=== PATIENT | female | born 1960 | race Two or more races ===

== ENCOUNTER 2018-06-24 12:54 | Day surgery (SDC) | payer BC, OTHER ==
[~2018-06-24 12:54] MED LIST: BUPIVACAINE HCL/PF 0.5% (5MG/ML) 10 ML VIAL IJ ONE
[2018-06-24 13:24] VITALS: BMI 22.3
[2018-06-24] MEDS ORDERED: METOCLOPRAMIDE HCL INJECTION 10 MG/2 ML VIAL IVPB ONE (13:24)
[2018-06-24] MEDS ORDERED: KETOROLAC TROMETHAMINE 30 MG/1 ML VIAL IVPUSH ONE (13:24)
[2018-06-24] MEDS ORDERED: KETOROLAC TROMETHAMINE 30 MG/1 ML VIAL ONE (13:28)
[2018-06-24] MEDS ORDERED: METOCLOPRAMIDE HCL INJECTION 10 MG/2 ML VIAL ONE (13:28)
[2018-06-24] MEDS ORDERED: FAMOTIDINE 20 MG/50 ML IVPB 20 MG/50 ML MG IVPB ONE ×2 (13:30→13:39)
[2018-06-24] MEDS ORDERED: SODIUM CHLORIDE 1,000 ML IV STA (13:30)
--- NOTE | 2018-06-24 13:30 | PDOC ---
History of Present Illness - General Chief Complaint: Nausea/Vomiting Stated Complaint: NAUSEA/VOMITING Time Seen by Provider: 06/24/18 13:17 History Source: Patient, Family - History of Present Illness Timing/Duration: reports: other (yesterday) Quality: reports: other Abdominal Pain Onset Location: reports: epigastric Pain Radiation: reports: no radiation Past History - Past Medical History Allergies/Adverse Reactions: Allergies Allergy/AdvReac Type Severity Reaction Status Date / Time Penicillins Allergy Rash Verified 06/24/18 13:01 Home Medications: Ambulatory Orders Famotidine 20 mg PO DAILY 06/24/18 Glimepiride 0 mg PO DAILY 06/24/18 Lamotrigine [Lamictal Xr] 200 mg PO DAILY 06/24/18 Lisinopril 10 mg PO DAILY 06/24/18 Metformin HCl [Glucophage] 500 mg PO BID 06/24/18 Polyethylene Glycol 3350 [Miralax 119 gm Btl -] 0 tab PO DAILY 06/24/18 Quetiapine Fumarate [Seroquel] 600 mg PO DAILY 06/24/18 Rosuvastatin [Crestor -] 10 mg PO DAILY 06/24/18 Sertraline HCl 200 mg PO DAILY 06/24/18 Doxycycline Hyclate 100 mg PO BID #14 tablet 06/25/18 Asthma: Yes Cancer: No Cardiac Disorders: No CVA: No COPD: No DVT: No Dementia: Yes Diabetes: Yes Dialysis: No GI Disorders: Yes Disorders: No HTN: No Hypercholesterolemia: Yes Kidney Stones: No Liver Disease: Yes Psychiatric Problems: (bipolar disorder, depression) Seizures: No Thyroid Disease: No Lung CA: No Other medical history: Gastroparesis, Hep B - Immunization History Immunization Up to Date: Yes - Suicide/Smoking/Psychosocial Hx Smoking History: Former smoker Have you smoked in the past 12 months: No If you are a former smoker, when did you quit?: 3 years ago Information on smoking cessation initiated: No Hx Alcohol Use: Yes (socially) Drug/Substance Use Hx: No Review of Systems - Review of Systems Constitutional: No: Chills, Fever Respiratory: No: Shortness of Breath Cardiac (ROS): No: Chest Pain ABD/GI: Yes: Nausea, Vomiting. No: Diarrhea : No: Dysuria, Flank Pain, Hematuria *Physical Exam - Vital Signs Last Vital Signs Temp Pulse Resp BP Pulse Ox 97.5 F L 86 16 106/55 96 06/24/18 13:01 06/24/18 13:01 06/24/18 13:01 06/24/18 13:01 06/24/18 13:01 - Physical Exam General Appearance: Yes: Appropriately Dressed, Mild Distress HEENT: positive: Normal Voice Neck: positive: Supple Respiratory/Chest: positive: Lungs Clear, Normal Breath Sounds. negative: Respiratory Distress Cardiovascular: positive: Regular Rate, S1, S2 Gastrointestinal/Abdominal: positive: Normal Bowel Sounds, Tender (minimal ttp to epigastrium, NT to RUQ or over mcburneys), Soft. negative: Distended, Guarding, Rebound Musculoskeletal: negative: CVA Tenderness Extremity: positive: Normal Inspection Integumentary: positive: Dry, Warm Neurologic: positive: Fully Oriented, Alert, Normal Mood/Affect ED Treatment Course - LABORATORY CBC & Chemistry Diagram: 06/25/18 06:30 06/25/18 06:30 Medical Decision Making - Medical Decision Making 06/24/18 13:24 57-year-old female, history of bipolar, asthma, NIDDM, gastroparesis, s/p tx for hpylori 10/15, has outside GI, brought in by daughter for nausea, vomiting with upper abdominal pain since yesterday. As per patient, began having some vague upper abdominal discomfort yesterday that might have worsened today and since this am, has had approximately 3 episodes of non-bloody, non-bilious nausea, vomiting. Unsure if pain impacted w/ food at all. pt not certain if her current symptoms similar to her gastroparesis. No change in bowel movements , fever or chills. No chest pain or shortness of breath. As per daughter, patient was treated for H. pylori last year, but feels that patient has not recovered fully since procedure in that her appetite has decreased since and has maybe had some subsequent weight loss. No h/o gallstones or kidney stones. No dysuria See exam Possible gastroparesis flare vs gastritis vs recurrent hpylori, less likely paul, renal colic and no lower abd pain to suggest appy, unlikely cardiac -pain control -antiemetic -IVF -ekg given age/RF -labs -reassess 06/24/18 13:35 06/24/18 13:41 Pt signed out to Dr John crockett w/u and dispo *DC/Admit/Observation/Transfer Diagnosis at time of Disposition: Appendicitis - Discharge Dispostion Disposition: HOME Condition at time of disposition: Improved - Prescriptions - Referrals - Patient Instructions - Post Discharge Activity
--- NOTE | 2018-06-24 14:13 | EKG ---
Test Reason : Blood Pressure : / mmHG Vent. Rate : 082 BPM Atrial Rate : 082 BPM P-R Int : 154 ms QRS Dur : 082 ms QT Int : 392 ms P-R-T Axes : 054 043 055 degrees QTc Int : 457 ms NORMAL SINUS RHYTHM NORMAL ECG NO PREVIOUS ECGS AVAILABLE Confirmed by VANDANA JAMES, SOLEDAD ([id number]) on 06/24/2018 2:13:17 PM Referred By: Confirmed By:SOLEDAD ROSS MD
[2018-06-24 14:18] LABS: BASO % 0.2 % (0-2.0); EOS % 3.6 % (0-4.5); HEMATOCRIT 38.6 % (32.4-45.2); HEMOGLOBIN 12.8 GM/dL (10.7-15.3); LYMPH % 12.4 % (8-40); MCH 31.4 pg (25.7-33.7); MCHC 33.2 g/dl (32.0-36.0); MEAN CELL VOLUME 94.4 fl (80-96); MEAN PLT VOLUME 8.9 fl (7.5-11.1); MONO % 5.6 % (3.8-10.2); NEUT % 78.2 % (42.8-82.8); PLATELET COUNT 349 K/MM3 (134-434); RBC 4.09 M/mm3 (3.60-5.2); WHITE BLOOD COUNT 16.5 K/mm3 (4.0-10.0)
[2018-06-24 14:41] LABS: ALBUMIN 4.1 g/dl (3.4-5.0); ANION GAP 8 (8-16); BLOOD UREA NITROGEN 17 mg/dL (7-18); CALCIUM 9.5 mg/dL (8.5-10.1); CHLORIDE 104 mmol/L (98-107); CO2 29 mmol/L (21-32); CREATININE 1.1 mg/dL (0.55-1.02); GLUCOSE,RANDOM 124 mg/dL (74-106); SGOT/AST 18 U/L (15-37); SGPT/ALT 20 U/L (12-78); SODIUM 141 mmol/L (136-145)
[2018-06-24 14:45] LABS: ALK PHOS 88 U/L (45-117); BILIRUBIN,TOTAL 0.3 mg/dL (0.2-1.0); TOT PROT 7.6 g/dl (6.4-8.2)
[2018-06-24 14:54] LABS: URINE APPEARANCE CLEAR; URINE BILIRUBIN NEGATIVE (<2.0 mg/dL); URINE COLOR LTYELLOW; URINE GLUCOSE (UA) NEGATIVE (NEGATIVE); URINE KETONE NEGATIVE (NEGATIVE); URINE LEUK ESTERASE TRACE (NEGATIVE); URINE NITRITE NEGATIVE (NEGATIVE); URINE PROTEIN NEGATIVE (NEGATIVE); URINE UROBILINOGEN NEGATIVE mg/dL (0.2-1.0)
[2018-06-24 15:01] LABS: EPI CELLS RARE /HPF (FEW); URINE MUCUS RARE
[2018-06-24] MEDS ORDERED: ACETAMINOPHEN 1000 MG/100 ML VIAL (NON FORMULARY) IVPB ONE (15:31)
--- NOTE | 2018-06-24 16:36 | PDOC ---
*Physical Exam - Vital Signs Last Vital Signs Temp Pulse Resp BP Pulse Ox 97.5 F L 86 16 106/55 96 06/24/18 13:01 06/24/18 13:01 06/24/18 13:01 06/24/18 13:01 06/24/18 13:01 - Physical Exam Gastrointestinal/Abdominal: positive: Normal Bowel Sounds, Tender (LLQ). negative: Guarding, Rebound ED Treatment Course - LABORATORY CBC & Chemistry Diagram: 06/25/18 06:30 06/25/18 06:30 - ADDITIONAL ORDERS Additional order review: Laboratory Results 06/24/18 06/24/18 06/24/18 14:44 13:55 13:55 Sodium 141 Potassium 5.0 Chloride 104 Carbon Dioxide 29 Anion Gap 8 BUN 17 Creatinine 1.1 H Creat Clearance w eGFR 50.84 Random Glucose 124 H Calcium 9.5 Total Bilirubin 0.3 AST 18 ALT 20 Alkaline Phosphatase 88 Creatine Kinase 91 Troponin I < 0.02 Total Protein 7.6 Albumin 4.1 Lipase 180 Urine Color Ltyellow Urine Appearance Clear Urine pH 7.0 Ur Specific [place] 1.010 Urine Protein Negative Urine Glucose (UA) Negative Urine Ketones Negative Urine Blood Negative Urine Nitrite Negative Urine Bilirubin Negative Urine Urobilinogen Negative Ur Leukocyte Esterase Trace Urine WBC (Auto) None Urine RBC (Auto) None Ur Epithelial Cells Rare Urine Mucus Rare 06/24/18 13:55 RBC 4.09 MCV 94.4 MCHC 33.2 RDW 12.0 MPV 8.9 Neutrophils % 78.2 Lymphocytes % 12.4 Monocytes % 5.6 Eosinophils % 3.6 Basophils % 0.2 - RADIOLOGY Radiology Studies Ordered: Category Date Time Status ABDOMEN & PELVIS CT WITH CONTR [CT] Stat CT Scan 06/24/18 15:10 Taken - Medications Given in the ED: ED Medications Discontinued Medications Generic Name Dose Route Start Last Admin Trade Name Freq PRN Reason Stop Dose Admin Famotidine/Sodium Chloride 20 mg in 50 mls @ 100 mls/hr 06/24/18 13:30 14:17 Pepcid 20 Mg Premixed Ivpb - IVPB 06/24/18 13:59 100 mls/hr ONCE ONE Administration Sodium Chloride 1,000 mls @ 1,000 mls/hr 06/24/18 13:30 06/24/18 14:00 Normal Saline - IV 06/24/18 14:29 1,000 mls/hr ASDIR STA Administration Metoclopramide HCl 10 mg 06/24/18 13:24 06/24/18 15:25 Reglan Injection - IVPB 06/24/18 13:25 Not Given ONCE ONE Medical Decision Making - Medical Decision Making 06/24/18 16:35 57 years old diabetes lower abdominal discomfort labs notable for elevated WBC CAT scan pending to Follow up results and reasses Left lower quadrant pain, CT with evidence of possible early appendicitis with appendiceal tip pointing to the left. Given white count and diabetic ertapenem given, given penicillin ALLERGY, Surgery to be consulted by resident. Dr. Reardon to follow. *DC/Admit/Observation/Transfer Diagnosis at time of Disposition: Appendicitis Qualifiers: Appendicitis type: acute appendicitis Acute appendicitis type: other Qualified Code(s): K35.89 - Other acute appendicitis - Discharge Dispostion Disposition: HOME Condition at time of disposition: Improved - Prescriptions - Referrals - Patient Instructions - Post Discharge Activity
[2018-06-24] MEDS ORDERED: ACETAMINOPHEN INJECTION 100 ML IVPB ONE (16:44)
[2018-06-24] MEDS ORDERED: ERTAPENEM SODIUM 1 GM/50 ML PRE-DOCKED IVPB ONE (17:14)
[2018-06-24] MEDS ORDERED: ERTAPENEM SODIUM 1 GM VIAL ONE (17:29)
[2018-06-24] MEDS ORDERED: BUPIVACAINE HCL/PF 0.5% (5MG/ML) 10 ML VIAL ONE (18:05)
--- NOTE | 2018-06-24 18:05 | PDOC ---
History of Present Illness - General Chief Complaint: Nausea/Vomiting Stated Complaint: NAUSEA/VOMITING Time Seen by Provider: 06/24/18 13:17 - History of Present Illness Initial Comments: 06/25/18 18:48 Per ALTON Silvestre note. 57-year-old female, history of bipolar, asthma, NIDDM, gastroparesis, s/p tx for hpylori 10/15, has outside GI, brought in by daughter for nausea, vomiting with upper abdominal pain since yesterday. As per patient, began having some vague upper abdominal discomfort yesterday that might have worsened today and since this am, has had approximately 3 episodes of non-bloody, non-bilious nausea, vomiting. Unsure if pain impacted w/ food at all. pt not certain if her current symptoms similar to her gastroparesis. No change in bowel movements , fever or chills. No chest pain or shortness of breath. As per daughter, patient was treated for H. pylori last year, but feels that patient has not recovered fully since procedure in that her appetite has decreased since and has maybe had some subsequent weight loss. No h/o gallstones or kidney stones. No dysuria See exam Possible gastroparesis flare vs gastritis vs recurrent hpylori, less likely paul, renal colic and no lower abd pain to suggest appy, unlikely cardiac -pain control -antiemetic -IVF -ekg given age/RF -labs -reassess Past History - Past Medical History Allergies/Adverse Reactions: Allergies Allergy/AdvReac Type Severity Reaction Status Date / Time Penicillins Allergy Rash Verified 06/24/18 13:01 Home Medications: Ambulatory Orders Famotidine 20 mg PO DAILY 06/24/18 Glimepiride 0 mg PO DAILY 06/24/18 Lamotrigine [Lamictal Xr] 200 mg PO DAILY 06/24/18 Lisinopril 10 mg PO DAILY 06/24/18 Metformin HCl [Glucophage] 500 mg PO BID 06/24/18 Polyethylene Glycol 3350 [Miralax 119 gm Btl -] 0 tab PO DAILY 06/24/18 Quetiapine Fumarate [Seroquel] 600 mg PO DAILY 06/24/18 Rosuvastatin [Crestor -] 10 mg PO DAILY 06/24/18 Sertraline HCl 200 mg PO DAILY 06/24/18 Doxycycline Hyclate 100 mg PO BID #14 tablet 06/25/18 Asthma: Yes Cancer: No Cardiac Disorders: No CVA: No COPD: No DVT: No Dementia: Yes Diabetes: Yes Dialysis: No GI Disorders: Yes Disorders: No HTN: No Hypercholesterolemia: Yes Kidney Stones: No Liver Disease: Yes Psychiatric Problems: (bipolar disorder, depression) Seizures: No Thyroid Disease: No Lung CA: No Other medical history: Gastroparesis, Hep B - Immunization History Immunization Up to Date: Yes - Suicide/Smoking/Psychosocial Hx Smoking History: Former smoker Have you smoked in the past 12 months: No If you are a former smoker, when did you quit?: 3 years ago Information on smoking cessation initiated: No Hx Alcohol Use: Yes (socially) Drug/Substance Use Hx: No Review of Systems - Review of Systems Able to Perform ROS?: Yes Is the patient limited Kiswahili proficient: No Constitutional: No: Chills, Diaphoresis, Fever HEENTM: No: Blurred Vision, Tinnitus Respiratory: No: Cough, Orthopnea, Shortness of Breath Cardiac (ROS): No: Chest Pain, Palpitations, Chest Tightness ABD/GI: Yes: Vomiting. No: Constipated : No: Burning, Dysuria Musculoskeletal: No: Back Pain, Muscle Pain, Muscle Weakness Neurological: No: Headache, Numbness, Tingling *Physical Exam - Vital Signs Last Vital Signs Temp Pulse Resp BP Pulse Ox 97.1 F L 73 16 121/59 97 06/24/18 16:40 06/24/18 16:40 06/24/18 16:40 06/24/18 16:40 06/24/18 16:40 - Physical Exam Comments: 06/25/18 18:49 GENERAL: Awake, alert, and fully oriented, in no acute distress HEAD: No signs of trauma, normocephalic, atraumatic EYES: EOMI, sclera anicteric, conjunctiva clear ENT:oropharynx clear without exudates. Moist mucosa NECK: Normal ROM LUNGS: No distress, speaks full sentences, clear to auscultation bilaterally HEART: Regular rate and rhythm, normal S1 and S2, no murmurs, rubs or gallops, peripheral pulses normal and equal bilaterally. ABDOMEN: Soft, + LLQ tenderness to palpation, normoactive bowel sounds. No guarding, no rebound. No masses EXTREMITIES : Normal inspection, Normal range of motion, no edema. No clubbing or cyanosis. NEUROLOGICAL: Normal speech, normal gait, no focal sensorimotor deficits SKIN: Warm, Dry, normal turgor, no rashes or lesions noted ED Treatment Course - LABORATORY CBC & Chemistry Diagram: 06/25/18 06:30 06/25/18 06:30 - ADDITIONAL ORDERS Additional order review: Laboratory Results 06/24/18 06/24/18 06/24/18 14:44 13:55 13:55 Sodium 141 Potassium 5.0 Chloride 104 Carbon Dioxide 29 Anion Gap 8 BUN 17 Creatinine 1.1 H Creat Clearance w eGFR 50.84 Random Glucose 124 H Calcium 9.5 Total Bilirubin 0.3 AST 18 ALT 20 Alkaline Phosphatase 88 Creatine Kinase 91 Troponin I < 0.02 Total Protein 7.6 Albumin 4.1 Lipase 180 Urine Color Ltyellow Urine Appearance Clear Urine pH 7.0 Ur Specific [place] 1.010 Urine Protein Negative Urine Glucose (UA) Negative Urine Ketones Negative Urine Blood Negative Urine Nitrite Negative Urine Bilirubin Negative Urine Urobilinogen Negative Ur Leukocyte Esterase Trace Urine WBC (Auto) None Urine RBC (Auto) None Ur Epithelial Cells Rare Urine Mucus Rare 06/24/18 13:55 RBC 4.09 MCV 94.4 MCHC 33.2 RDW 12.0 MPV 8.9 Neutrophils % 78.2 Lymphocytes % 12.4 Monocytes % 5.6 Eosinophils % 3.6 Basophils % 0.2 - Medications Given in the ED: ED Medications Discontinued Medications Generic Name Dose Route Start Last Admin Trade Name Freq PRN Reason Stop Dose Admin Acetaminophen 1,000 mg 06/24/18 15:31 06/24/18 16:45 Ofirmev Injection - IVPB 06/24/18 15:32 1,000 mg ONCE ONE Administration Famotidine/Sodium Chloride 20 mg in 50 mls @ 100 mls/hr 06/24/18 13:30 14:17 Pepcid 20 Mg Premixed Ivpb - IVPB 06/24/18 13:59 100 mls/hr ONCE ONE Administration Sodium Chloride 1,000 mls @ 1,000 mls/hr 06/24/18 13:30 06/24/18 14:00 Normal Saline - IV 06/24/18 14:29 1,000 mls/hr ASDIR STA Administration Ketorolac Tromethamine 30 mg 06/24/18 13:24 06/24/18 17:10 Toradol Injection - IVPUSH 06/24/18 13:25 Not Given ONCE ONE Metoclopramide HCl 10 mg 06/24/18 13:24 06/24/18 15:25 Reglan Injection - IVPB 06/24/18 13:25 Not Given ONCE ONE Medical Decision Making - Medical Decision Making 06/25/18 18:51 57-year-old female, history of bipolar, asthma, NIDDM, gastroparesis, s/p tx for hpylori 10/15, has outside GI, brought in by daughter for nausea, vomiting with upper abdominal pain since yesterday. Possible gastroparesis flare vs gastritis vs recurrent hpylori, less likely paul, renal colic and no lower abd pain to suggest appy, unlikely cardiac. Patient had an elevated WBC and abdominal CT showed some signs of early appendicitis and a L pointing appendix tip that shows some consistency with the patient's physical exam. Surgery was consulted for possible appendicitis. The patient agreed to appendectomy procedure and will be admitted to med/surg. 06/25/18 18:54 06/25/18 18:55 *DC/Admit/Observation/Transfer Diagnosis at time of Disposition: Appendicitis Qualifiers: Appendicitis type: acute appendicitis Acute appendicitis type: other Qualified Code(s): K35.89 - Other acute appendicitis - Discharge Dispostion Disposition: HOME Condition at time of disposition: Improved Decision to Admit order: Yes - Prescriptions - Referrals - Patient Instructions - Post Discharge Activity
--- NOTE | 2018-06-24 18:07 | CONSULT ---
Consult Consult Specialty:: general surgery Reason for Consultation:: appendicitis - History of Present Illness Chief Complaint: abdominal pain History of Present Illness: 57 yo female PMH history of bipolar, asthma, NIDDM, gastroparesis, brought in by daughter for nausea, vomiting with upper abdominal pain since yesterday. As per patient, began having some vague upper abdominal discomfort yesterday that might have worsened today and since this am, has had approximately 3 episodes of non-bloody, non-bilious nausea, vomiting. Unsure if pain impacted w/ food at all. pt not certain if her current symptoms similar to her gastroparesis. No change in bowel movements, fever or chills. CTscan showed a prominent appendix with a left LLQ upper pelvic facing tip. Last meal was yesterday. We were called to assess. - History Source History Provided By: Patient, Medical Record Limitations to Obtaining History: No Limitations - Past Medical History Pulmonary: Yes: Asthma Psych: Yes: Bipolar Endocrine: Yes: Diabetes Mellitus - Alcohol/Substance Use Hx Alcohol Use: Yes (socially) - Smoking History Smoking history: Former smoker Have you smoked in the past 12 months: No If you are a former smoker, when did you quit?: 3 years ago Home Medications - Allergies Allergies/Adverse Reactions: Allergies Allergy/AdvReac Type Severity Reaction Status Date / Time Penicillins Allergy Rash Verified 06/24/18 13:01 - Home Medications Home Medications: Ambulatory Orders Famotidine 20 mg PO DAILY 06/24/18 Glimepiride 0 mg PO DAILY 06/24/18 Lamotrigine [Lamictal Xr] 200 mg PO DAILY 06/24/18 Lisinopril 10 mg PO DAILY 06/24/18 Metformin HCl [Glucophage] 500 mg PO BID 06/24/18 Polyethylene Glycol 3350 [Miralax 119 gm Btl -] 0 tab PO DAILY 06/24/18 Quetiapine Fumarate [Seroquel] 600 mg PO DAILY 06/24/18 Rosuvastatin [Crestor -] 10 mg PO DAILY 06/24/18 Sertraline HCl 200 mg PO DAILY 06/24/18 Review of Systems - Review of Systems Constitutional: denies: Chills, Fever Eyes: denies: Blind Spots, Recent Change in Vision HENT: denies: Difficult Swallowing, Throat Pain Neck: denies: Decreased ROM, Tenderness Cardiovascular: denies: Chest Pain, Palpitations Respiratory: denies: Cough, SOB Gastrointestinal: reports: Abdominal Pain, Constipation, Indigestion, Vomiting Genitourinary: denies: Discharge, Dysuria Breasts: reports: No Symptoms Reported. denies: Pain Musculoskeletal: denies: Muscle Cramps, Muscle Weakness Integumentary: denies: Lesions, Lump, Rash Neurological: denies: Seizure, Syncope Endocrine: denies: Unexplained Weight Gain, Unexplained Weight Loss Hematology/Lymphatic: denies: Easily Bruised, Excessive Bleeding Psychiatric: reports: Depression. denies: Anxiety Physical Exam Vital Signs: Vital Signs Temperature 97.1 F L 06/24/18 16:40 Pulse Rate 73 06/24/18 16:40 Respiratory Rate 16 06/24/18 16:40 Blood Pressure 121/59 06/24/18 16:40 O2 Sat by Pulse Oximetry (%) 97 06/24/18 16:40 Vital Signs Period Temp Pulse Resp BP Sys/[place] Pulse Ox Last 24 Hr 97.1 F-97.5 F 73-86 16-16 106-121/55-59 96-97 Constitutional: Yes: Well Nourished, Calm, Mild Distress Eyes: Yes: Conjunctiva Clear, EOM Intact HENT: Yes: Atraumatic, Normocephalic Neck: Yes: Supple, Trachea Midline Cardiovascular: Yes: Regular Rate and Rhythm, S1, S2 Respiratory: Yes: Regular, CTA Bilaterally Gastrointestinal: Yes: Normal Bowel Sounds, Soft, Tenderness (LLQ). No: Palpable Mass, Tenderness, Epigastrium, Tenderness, Rebound ...Rectal Exam: Yes: Sphincter Tone Normal. No: Mass Renal/: No: CVA Tenderness - Left, CVA Tenderness - Right Musculoskeletal: No: Muscle Pain, Muscle Weakness Extremities: No: Cool, Cyanosis Edema: No Peripheral Pulses WNL: Yes Neurological: Yes: Alert, Oriented Psychiatric: Yes: Alert, Oriented Labs: CBC, BMP 06/24/18 13:55 06/24/18 13:55 Imaging - Results Cat Scan: Report Reviewed, Image Reviewed (prominent appendix 0.8cm) Problem List - Problems (1) Acute appendicitis with localized peritonitis Assessment/Plan: 57 yo female with early acute appendicitis with left sided localized peritonitis NPO and IVF hydration IV antibiotics Discussed with patient risks, benefits and alternatives of laparoscopic possible open appendectomy, including but not limited to bleeding, infection, injury to adjacent structures, leak or injury, intraabdominal abscess, need for further procedures, ; alternatives include antibiotics, delayed or no surgery - risks of this include failure of nonoperative therapy, perforation, sepsis, recurrence, . Patient desires to proceed with operation - will take to OR for above. Informed consent signed for same. Thank you for the opportunity to participate in the care of this patient. Code(s): K35.3 - ACUTE APPENDICITIS WITH LOCALIZED PERITONITIS (2) Abdominal pain in female Code(s): R10.9 - UNSPECIFIED ABDOMINAL PAIN (3) Diabetes Code(s): E11.9 - TYPE 2 DIABETES MELLITUS WITHOUT COMPLICATIONS Qualifiers: Diabetes mellitus type: type 2 (4) Bipolar disorder Code(s): F31.9 - BIPOLAR DISORDER, UNSPECIFIED (5) History of Helicobacter pylori infection Code(s): Z86.19 - PERSONAL HISTORY OF OTHER INFECTIOUS AND PARASITIC DISEASES
[2018-06-24 18:09] LABS: INR 1.1 (0.82-1.09); PROTHROMBIN TIME (PATIENT) 12.4 SEC (9.7-13.0)
[2018-06-24 18:12] LABS: ACTIVATED PTT 28.7 SECONDS (25.2-36.5)
--- NOTE | 2018-06-24 18:25 | PDOC ---
*Physical Exam - Vital Signs Last Vital Signs Temp Pulse Resp BP Pulse Ox 97.1 F L 73 16 121/59 97 06/24/18 16:40 06/24/18 16:40 06/24/18 16:40 06/24/18 16:40 06/24/18 16:40 ED Treatment Course - LABORATORY CBC & Chemistry Diagram: 06/24/18 13:55 06/24/18 13:55 - ADDITIONAL ORDERS Additional order review: Laboratory Results 06/24/18 06/24/18 06/24/18 17:32 14:44 13:55 PT with INR 12.40 INR 1.10 PTT (Actin FS) 28.7 Sodium Potassium Chloride Carbon Dioxide Anion Gap BUN Creatinine Creat Clearance w eGFR Random Glucose Calcium Total Bilirubin AST ALT Alkaline Phosphatase Creatine Kinase Troponin I Total Protein Albumin Lipase 180 Urine Color Ltyellow Urine Appearance Clear Urine pH 7.0 Ur Specific [place] 1.010 Urine Protein Negative Urine Glucose (UA) Negative Urine Ketones Negative Urine Blood Negative Urine Nitrite Negative Urine Bilirubin Negative Urine Urobilinogen Negative Ur Leukocyte Esterase Trace Urine WBC (Auto) None Urine RBC (Auto) None Ur Epithelial Cells Rare Urine Mucus Rare 06/24/18 13:55 PT with INR INR PTT (Actin FS) Sodium 141 Potassium 5.0 Chloride 104 Carbon Dioxide 29 Anion Gap 8 BUN 17 Creatinine 1.1 H Creat Clearance w eGFR 50.84 Random Glucose 124 H Calcium 9.5 Total Bilirubin 0.3 AST 18 ALT 20 Alkaline Phosphatase 88 Creatine Kinase 91 Troponin I < 0.02 Total Protein 7.6 Albumin 4.1 Lipase Urine Color Urine Appearance Urine pH Ur Specific [place] Urine Protein Urine Glucose (UA) Urine Ketones Urine Blood Urine Nitrite Urine Bilirubin Urine Urobilinogen Ur Leukocyte Esterase Urine WBC (Auto) Urine RBC (Auto) Ur Epithelial Cells Urine Mucus 06/24/18 13:55 RBC 4.09 MCV 94.4 MCHC 33.2 RDW 12.0 MPV 8.9 Neutrophils % 78.2 Lymphocytes % 12.4 Monocytes % 5.6 Eosinophils % 3.6 Basophils % 0.2 - Medications Given in the ED: ED Medications Discontinued Medications Generic Name Dose Route Start Last Admin Trade Name Freq PRN Reason Stop Dose Admin Acetaminophen 1,000 mg 06/24/18 15:31 06/24/18 16:45 Ofirmev Injection - IVPB 06/24/18 15:32 1,000 mg ONCE ONE Administration Famotidine/Sodium Chloride 20 mg in 50 mls @ 100 mls/hr 06/24/18 13:30 14:17 Pepcid 20 Mg Premixed Ivpb - IVPB 06/24/18 13:59 100 mls/hr ONCE ONE Administration Sodium Chloride 1,000 mls @ 1,000 mls/hr 06/24/18 13:30 06/24/18 14:00 Normal Saline - IV 06/24/18 14:29 1,000 mls/hr ASDIR STA Administration Ketorolac Tromethamine 30 mg 06/24/18 13:24 06/24/18 17:10 Toradol Injection - IVPUSH 06/24/18 13:25 Not Given ONCE ONE Metoclopramide HCl 10 mg 06/24/18 13:24 06/24/18 15:25 Reglan Injection - IVPB 06/24/18 13:25 Not Given ONCE ONE Medical Decision Making - Medical Decision Making 06/24/18 18:23 pt signed out from Dr. Shukla pending surg cs, labs with +WBC ct, CT a/p with suggestions of early appy and dilated appx 0.8cm. IV abx administered, seen by surgery, Dr. Anderson, will pend operative management. admit to hospitalist for acute appy. stable for floors, pain controlled. *DC/Admit/Observation/Transfer Diagnosis at time of Disposition: Appendicitis Qualifiers: Appendicitis type: acute appendicitis Acute appendicitis type: other Qualified Code(s): K35.89 - Other acute appendicitis - Discharge Dispostion Condition at time of disposition: Guarded Decision to Admit order: Yes - Referrals Referrals: Akila Moran MD [Primary Care Provider] - - Patient Instructions - Post Discharge Activity
[2018-06-24] MEDS ORDERED: LIDOCAINE HCL/PF 2% SDV 5ML VIAL ONE (19:43)
[2018-06-24] MEDS ORDERED: PROPOFOL 20 ML ONE (19:43)
[2018-06-24] MEDS ORDERED: ROCURONIUM BROMIDE 50 MG/5 ML VIAL ONE (19:44)
[2018-06-24] MEDS ORDERED: DEXAMETHASONE SOD PHOSPHATE 4 MG/1 ML VIAL ONE (19:52)
[2018-06-24] MEDS ORDERED: ONDANSETRON 4 MG/2 ML VIAL IVPUSH PRN ×3 (20:15→20:51)
[2018-06-24] MEDS ORDERED: PHENYLEPHRINE HCL 10 MG/1 ML SINGLE DOSE VIAL ONE (20:17)
[2018-06-24] MEDS ORDERED: NEOSTIGMINE METHYLSULFATE 0.5 MG/ML - 10 ML MDV ONE (20:18)
[2018-06-24] MEDS ORDERED: GLYCOPYRROLATE 0.2 MG/1 ML VIAL ONE (20:18)
[2018-06-24] MEDS ORDERED: BUPIVACAINE HCL/PF 0.5% (5MG/ML) 10 ML VIAL IJ ONE (20:20)
--- NOTE | 2018-06-24 20:40 | OP ---
Operative Note - Note: Operative Date: 06/24/18 Pre-Operative Diagnosis: early acute appendicitis Operation: laparoscopic appendectomy Findings: long mildly inflamed appendix. no gross perforation seen. all counts correct Post-Operative Diagnosis: Same as Pre-op Surgeon: Jeffrey Anderson Anesthesiologist/CHAMPAGNE MAKER: Bharath French Anesthesia: General, Local (0.5% marcaine 10ml) Specimens Removed: appendix Estimated Blood Loss (mls): 10 Drains, Volume Out (mls): 200 (urine (grayson removed)) Fluid Volume Replaced (mls): 700 (crystalloid ) Operative Report Dictated: Yes
[2018-06-24] MEDS ORDERED: ACETAMINOPHEN 325 MG TABLET (FP) PO PRN ×2 (20:43→20:51)
[2018-06-24] MEDS ORDERED: morphine SULFATE 4 MG/ML VIAL IVPUSH PRN ×2 (20:43→20:51)
[2018-06-24] MEDS ORDERED: IBUPROFEN 600 MG TABLET (FP) PO PRN ×2 (20:43→20:51)
[2018-06-24] MEDS: LACTATED RINGERS SOLUTION 1,000 ML/1,000 ML INFUS.BAG IV SCH (21:45)
--- NOTE | 2018-06-25 00:45 | HP ---
CHIEF COMPLAINT: Abdominal Pain PCP: Dr. Moran HISTORY OF PRESENT ILLNESS: Of note, Hx and Physical were done after patient was roomed post op. 57 y/o F with a PMHx of Asthma, Dementia, HLD, Bipolar, Depression, Gastroparesis, Hep B, NIDDM, H Pylori presents after 3 episodes of NBNB Vomiting accompanied with LLQ pain. Patient normally vomits 1-2x a week. However , today she had some diffuse abdominal pain that worsened and patient looked dehydrated to her daughter. Pain described as constant in the LLQ, 05/08, did not travel. Patient is unsure what triggered the pain and vomiting. Denies any new foods, medication changes or travel. Patient has felt a decreased appetite for some time now. Most of the hx was provided by the son and daughter present. ER course was notable for: (1) CT Abdomen: appendix appears prominent measuring 0.8 cm in diameter, may be early acute appendicitis. (2) NS, Reglan, Pepcid, Toradol, Ertapenem (3) WBC 16.5 Recent Travel: Denies PAST MEDICAL HISTORY: Asthma, Dementia, NIDDM, HLD, Bipolar, Depression, Gastroparesis, Hep B, H Pylori PAST SURGICAL HISTORY: Tummy tuck (years ago) Social History: Smokin/3ppd for 25 years, quit 3 years ago Alcohol: Socially Drugs: Denies Family History: Extensive psych hx as per daughter Brother with Crohns Mother with Alzhiemers, HTN Allergies Penicillins Allergy (Verified 06/24/18 13:01) Rash HOME MEDICATIONS: Home Medications Medication Instructions Recorded Famotidine 20 mg PO DAILY 06/24/18 Glimepiride 0 mg PO DAILY 06/24/18 Lamotrigine [Lamictal Xr] 200 mg PO DAILY 06/24/18 Lisinopril 10 mg PO DAILY 06/24/18 Metformin HCl [Glucophage] 500 mg PO BID 06/24/18 Polyethylene Glycol 3350 [Miralax 0 tab PO DAILY 06/24/18 119 gm Btl -] Quetiapine Fumarate [Seroquel] 600 mg PO DAILY 06/24/18 Rosuvastatin [Crestor -] 10 mg PO DAILY 06/24/18 Sertraline HCl 200 mg PO DAILY 06/24/18 REVIEW OF SYSTEMS CONSTITUTIONAL: Present: loss of appetite Absent: fever, chills, diaphoresis, generalized weakness, malaise, weight change HEENT: Absent: rhinorrhea, nasal congestion, throat pain, throat swelling, difficulty swallowing, mouth swelling, ear pain, eye pain, visual changes CARDIOVASCULAR: Absent: chest pain, syncope, palpitations, irregular heart rate, lightheadedness , peripheral edema RESPIRATORY: Absent: cough, shortness of breath, dyspnea with exertion, orthopnea, wheezing, stridor, hemoptysis GASTROINTESTINAL: Present: abdominal pain, nausea, vomiting, constipation Absent: abdominal distension, diarrhea, melena, hematochezia GENITOURINARY: Absent: dysuria, frequency, urgency, hesitancy, hematuria, flank pain, genital pain MUSCULOSKELETAL: Absent: myalgia, arthralgia, joint swelling, back pain, neck pain SKIN: Absent: rash, itching, pallor HEMATOLOGIC/IMMUNOLOGIC: Absent: easy bleeding, easy bruising, lymphadenopathy, frequent infections ENDOCRINE: Absent: unexplained weight gain, unexplained weight loss, heat intolerance, cold intolerance NEUROLOGIC: Absent: headache, focal weakness or paresthesias, dizziness, unsteady gait, seizure, mental status changes, bladder or bowel incontinence PSYCHIATRIC: Absent: anxiety, depression, suicidal or homicidal ideation, hallucinations. PHYSICAL EXAMINATION Vital Signs - 24 hr 06/24/18 06/24/18 06/24/18 13:01 16:40 20:34 Temperature 97.5 F L 97.1 F L 97.8 F Pulse Rate 86 90 Pulse Rate [ 73 Left Radial] Respiratory 16 16 16 Rate Blood Pressure 106/55 148/61 Blood Pressure 121/59 [Left Arm] O2 Sat by Pulse 96 97 98 Oximetry (%) 06/24/18 06/24/18 06/24/18 20:45 21:00 21:15 Temperature Pulse Rate 84 76 72 Pulse Rate [ Left Radial] Respiratory 15 16 15 Rate Blood Pressure 122/57 112/57 110/56 Blood Pressure [Left Arm] O2 Sat by Pulse 99 100 100 Oximetry (%) 06/24/18 06/24/18 06/24/18 21:30 21:45 22:29 Temperature 97.8 F 98.4 F Pulse Rate 72 70 66 Pulse Rate [ Left Radial] Respiratory 14 14 18 Rate Blood Pressure 103/58 108/56 110/65 Blood Pressure [Left Arm] O2 Sat by Pulse 100 98 Oximetry (%) GENERAL: Awake, alert, and fully oriented, in no acute distress. THROAT: Oropharynx clear without exudates. Moist mucous membranes. NECK: No JVD LUNGS: Breath sounds equal, clear to auscultation bilaterally. No wheezes HEART: Regular rate and rhythm, normal S1 and S2 without murmur, rub or gallop. ABDOMEN: Soft, Diffuse Tenderness to palpation, 3 surgical wounds present healing with overlying purple glue, no drainge, erythema or swelling noted. Not distended, normoactive bowel sounds, no guarding EXTREMITIES: No peripheral edema. Wearing SCDs Laboratory Results - last 24 hr 06/24/18 06/24/18 06/24/18 13:55 13:55 13:55 WBC 16.5 H RBC 4.09 Hgb 12.8 Hct 38.6 MCV 94.4 MCH 31.4 MCHC 33.2 RDW 12.0 Plt Count 349 MPV 8.9 Absolute Neuts (auto) 12.9 Neutrophils % 78.2 Lymphocytes % 12.4 Monocytes % 5.6 Eosinophils % 3.6 Basophils % 0.2 Nucleated RBC % 0 PT with INR INR PTT (Actin FS) Sodium 141 Potassium 5.0 Chloride 104 Carbon Dioxide 29 Anion Gap 8 BUN 17 Creatinine 1.1 H Creat Clearance w eGFR 50.84 Random Glucose 124 H Calcium 9.5 Total Bilirubin 0.3 AST 18 ALT 20 Alkaline Phosphatase 88 Creatine Kinase 91 Troponin I < 0.02 Total Protein 7.6 Albumin 4.1 Lipase 180 Urine Color Urine Appearance Urine pH Ur Specific [place] Urine Protein Urine Glucose (UA) Urine Ketones Urine Blood Urine Nitrite Urine Bilirubin Urine Urobilinogen Ur Leukocyte Esterase Urine WBC (Auto) Urine RBC (Auto) Ur Epithelial Cells Urine Mucus Blood Type Antibody Screen 06/24/18 06/24/18 06/24/18 14:44 17:32 17:32 WBC RBC Hgb Hct MCV MCH MCHC RDW Plt Count MPV Absolute Neuts (auto) Neutrophils % Lymphocytes % Monocytes % Eosinophils % Basophils % Nucleated RBC % PT with INR 12.40 INR 1.10 PTT (Actin FS) 28.7 Sodium Potassium Chloride Carbon Dioxide Anion Gap BUN Creatinine Creat Clearance w eGFR Random Glucose Calcium Total Bilirubin AST ALT Alkaline Phosphatase Creatine Kinase Troponin I Total Protein Albumin Lipase Urine Color Ltyellow Urine Appearance Clear Urine pH 7.0 Ur Specific [place] 1.010 Urine Protein Negative Urine Glucose (UA) Negative Urine Ketones Negative Urine Blood Negative Urine Nitrite Negative Urine Bilirubin Negative Urine Urobilinogen Negative Ur Leukocyte Esterase Trace Urine WBC (Auto) None Urine RBC (Auto) None Ur Epithelial Cells Rare Urine Mucus Rare Blood Type O POSITIVE Antibody Screen Negative 06/24/18 21:35 WBC RBC Hgb Hct MCV MCH MCHC RDW Plt Count MPV Absolute Neuts (auto) Neutrophils % Lymphocytes % Monocytes % Eosinophils % Basophils % Nucleated RBC % PT with INR INR PTT (Actin FS) Sodium Potassium Chloride Carbon Dioxide Anion Gap BUN Creatinine Creat Clearance w eGFR Random Glucose Calcium Total Bilirubin AST ALT Alkaline Phosphatase Creatine Kinase Troponin I Total Protein Albumin Lipase Urine Color Urine Appearance Urine pH Ur Specific [place] Urine Protein Urine Glucose (UA) Urine Ketones Urine Blood Urine Nitrite Urine Bilirubin Urine Urobilinogen Ur Leukocyte Esterase Urine WBC (Auto) Urine RBC (Auto) Ur Epithelial Cells Urine Mucus Blood Type O POSITIVE Antibody Screen Active Medications Acetaminophen (Tylenol -) 650 mg PO Q6H PRN PRN Reason: PAIN LEVEL 1-5 Glimepiride (Amaryl -) 1 mg PO DAILY@0700 [facility] Lactated Ringer's (Lactated Ringers Solution) 1,000 ml in 1,000 mls @ 100 mls/ hr IV ASDIR [facility] Last Admin: 06/24/18 21:45 Dose: 0 mls Ibuprofen (Motrin -) 600 mg PO Q6H PRN PRN Reason: PAIN LEVEL 1-5 Lamotrigine (Lamictal -) 100 mg PO BID [facility] Lisinopril (Prinivil) 10 mg PO DAILY [facility] Metformin HCl (Glucophage -) 500 mg PO BIDAC [facility] Morphine Sulfate (Morphine Sulfate) 4 mg IVPUSH Q4H PRN PRN Reason: PAIN LEVEL 7 - 10 Ondansetron HCl (Zofran Injection) 4 mg IVPUSH Q6H PRN PRN Reason: NAUSEA Polyethylene Glycol (Miralax (For Daily Use) -) 17 gm PO DAILY [facility] Quetiapine Fumarate (Seroquel -) 600 mg PO HS [facility] Ranitidine HCl (Zantac -) 150 mg PO DAILY [facility] Rosuvastatin Calcium (Crestor -) 10 mg PO HS [facility] Sertraline HCl (Zoloft -) 200 mg PO DAILY [facility] IMAGING: - CT Abdomen/Pelvis: No CT evidence of acute diverticulitis or colitis. The appendix appears slightly prominent measuring 0.8 cm in diameter without definite evidence of acute inflammation. This finding may be on the basis of normal variation versus early acute appendicitis. Correlate clinically. The appendiceal tip extends slightly to the left of midline at the level of the mid pelvis. Small bilateral inguinal hernias containing fat only. Diffuse hepatic steatosis. A 2 x 1 cm nonspecific hypodense focus is seen within the left caudate lobe of the liver - ? possible hemangioma. Comparison with previous imaging studies is suggested if available from a different facility. If prior studies are not available for comparison correlate with contrast-enhanced MRI. There is partial imaging of a pericardial effusion which appears to be small in volume on the basis of the current exam. Correlate with echocardiography, nonemergent versus emergent as clinically indicated. ASSESSMENT/PLAN: 57 y/o F with a PMHx of Asthma, Dementia, HLD, Bipolar, Depression, Gastroparesis, Hep B, NIDDM, H Pylori presents after 3 episodes of NBNB Vomiting accompanied with LLQ pain was admitted for Appendicitis. 1. Appendicitis s/p laparoscopic appendectomy (06/24) POD#1 - Started on Regular Diet - Pain 1-5: Ibuprofen, Tylenol - Pain 6-10: Morphine 4mg IVPUSH Q4H PRN - Zofran 4mg IVPUSH Q6H for nausea - Continue Incentive spirometer - CBC, CMP pending tmrw - If any fevers, will culture and start on ABx 2. HTN - Continue Lisinopril 10 mg PO DAILY 3. NIDDM - Continue Glimepiride 1 mg PO DAILY - Continue Metformin HCl 500 mg PO BIDAC 4. Bipolar - Continue Lamictal 100 mg PO BID - Continue Seroquel 600 mg PO HS 5. Depression - Continue Zoloft 200 mg PO DAILY 6. HLD - Continue Rosuvastatin Calcium 10 mg PO HS STEVEN 7. FEN - Continue Lactated Ringers @ 100 mls/hr - Lytes WNL, replete as needed - Regular diet 8. PPx - DVT: SCDs Visit type - Emergency Visit Emergency Visit: Yes Care time: The patient presented to the Emergency Department on the above date and was hospitalized for further evaluation of their emergent condition. - New Patient This patient is new to me today: Yes Date on this admission: 06/24/18 - Critical Care Critical Care patient: No Hospitalist Screening - Colonoscopy Questionnaire Colonoscopy Questionnaire: Colonoscopy Questionnaire - Patient: 50 - 75 years old and never had a screening colonoscopy: Unknown History of colon or rectal polyps, or CA: Unknown History of IBD, Crohn's disease or UC: Unknown History of abdominal radiation therapy as a child: Unknown - Relative: 1 with colon or rectal CA, or polyps at age 60 or younger: Unknown Colon or rectal CA diagnosed at age 45 or younger: Unknown Multiple relatives with colon or rectal CA: Unknown - Outcome: Screening Result: Negative Screen
[2018-06-25] MEDS ORDERED: QUEtiapine FUMARATE 100 MG TABLET (FP) ONE (02:09)
[2018-06-25] MEDS ORDERED: QUEtiapine FUMARATE 300 MG TABLET PO SCH ×2 (02:15→10:00)
--- NOTE | 2018-06-25 05:19 | PN ---
Progress Note, Physician Chief Complaint: abdominal pain History of Present Illness: 57 yo female PMH history of bipolar, asthma, NIDDM, gastroparesis, brought in by daughter for nausea, vomiting with upper abdominal pain since yesterday. stable postop. Fever and leukocytosis improved. tolerating diet and voiting no complaints. - Current Medication List Current Medications: Active Medications Acetaminophen (Tylenol -) 650 mg PO Q6H PRN PRN Reason: PAIN LEVEL 1-5 Last Admin: 06/25/18 02:24 Dose: 650 mg Glimepiride (Amaryl -) 1 mg PO DAILY@0700 [facility] Lactated Ringer's (Lactated Ringers Solution) 1,000 ml in 1,000 mls @ 100 mls/ hr IV ASDIR [facility] Last Admin: 06/24/18 21:45 Dose: 0 mls Ibuprofen (Motrin -) 600 mg PO Q6H PRN PRN Reason: PAIN LEVEL 1-5 Lamotrigine (Lamictal -) 100 mg PO BID [facility] Lisinopril (Prinivil) 10 mg PO DAILY [facility] Metformin HCl (Glucophage -) 500 mg PO BIDAC [facility] Morphine Sulfate (Morphine Sulfate) 4 mg IVPUSH Q4H PRN PRN Reason: PAIN LEVEL 7 - 10 Ondansetron HCl (Zofran Injection) 4 mg IVPUSH Q6H PRN PRN Reason: NAUSEA Polyethylene Glycol (Miralax (For Daily Use) -) 17 gm PO DAILY [facility] Quetiapine Fumarate (Seroquel -) 600 mg PO HS [facility] Last Admin: 06/25/18 02:09 Dose: 600 mg Ranitidine HCl (Zantac -) 150 mg PO DAILY [facility] Rosuvastatin Calcium (Crestor -) 10 mg PO HS [facility] Sertraline HCl (Zoloft -) 200 mg PO DAILY [facility] - Objective Vital Signs: Vital Signs Temperature 96 F L 06/25/18 01:09 Pulse Rate 68 06/25/18 01:09 Respiratory Rate 18 06/25/18 01:09 Blood Pressure 112/64 06/25/18 01:09 O2 Sat by Pulse Oximetry (%) 98 06/24/18 22:29 Constitutional: Yes: Well Nourished, No Distress, Calm Eyes: Yes: Conjunctiva Clear, EOM Intact HENT: Yes: Atraumatic, Normocephalic Neck: Yes: Supple, Trachea Midline Cardiovascular: Yes: Regular Rate and Rhythm, S1, S2 Respiratory: Yes: Regular, CTA Bilaterally Gastrointestinal: Yes: Normal Bowel Sounds, Soft, Tenderness (incisional). No: Distention Genitourinary: No: CVA Tenderness - Left, CVA Tenderness - Right Extremities: No: Cool, Cyanosis Wound/Incision: Yes: Clean/Dry, Well Approximated, Open to air Neurological: Yes: Alert, Oriented Psychiatric: Yes: Alert, Oriented Labs: CBC, BMP 06/24/18 13:55 06/24/18 13:55 INR, PTT INR 1.10 (0.82-1.09) 06/24/18 17:32 Problem List - Problems (1) Acute appendicitis with localized peritonitis Assessment/Plan: 57 yo female with early acute appendicitis with left sided localized peritonitis POD#1 s/p lap appendectomy regular diet analgesia Discharge home on 7 days Abx f/u in 2 weeks Code(s): K35.3 - ACUTE APPENDICITIS WITH LOCALIZED PERITONITIS (2) Abdominal pain in female Code(s): R10.9 - UNSPECIFIED ABDOMINAL PAIN (3) Diabetes Code(s): E11.9 - TYPE 2 DIABETES MELLITUS WITHOUT COMPLICATIONS Qualifiers: Diabetes mellitus type: type 2 (4) Bipolar disorder Code(s): F31.9 - BIPOLAR DISORDER, UNSPECIFIED (5) History of Helicobacter pylori infection Code(s): Z86.19 - PERSONAL HISTORY OF OTHER INFECTIOUS AND PARASITIC DISEASES
--- NOTE | 2018-06-25 06:21 | PN ---
Teaching Attending Note Name of Resident: Mabel Valdovinos ATTENDING PHYSICIAN STATEMENT I saw and evaluated the patient. I reviewed the resident's note and discussed the case with the resident. I agree with the resident's findings and plan as documented. SUBJECTIVE: OBJECTIVE: ASSESSMENT AND PLAN: patient admitted for an acute appendicitis s/p surgical resection will follow up with surgery recommendations.
[2018-06-25] MEDS: metFORMIN HCL 500 MG TABLET (FP) PO SCH ×2 (06:22→08:37)
[2018-06-25] MEDS: GLIMEPIRIDE 1 MG TABLET (FP) PO SCH ×2 (06:22→08:36)
[2018-06-25 07:00] LABS: BASO % 0.5 % (0-2.0); HEMATOCRIT 34.2 % (32.4-45.2); HEMOGLOBIN 11.6 GM/dL (10.7-15.3); LYMPH % 27.9 % (8-40); MEAN PLT VOLUME 8.7 fl (7.5-11.1); MONO % 7.3 % (3.8-10.2); NEUT % 63.3 % (42.8-82.8); PLATELET COUNT 298 K/MM3 (134-434); RBC 3.64 M/mm3 (3.60-5.2); RDW 12.1 % (11.6-15.6); WHITE BLOOD COUNT 11.7 K/mm3 (4.0-10.0)
[2018-06-25] MEDS: LACTATED RINGERS SOLUTION 1,000 ML/1,000 ML INFUS.BAG IV SCH (07:13)
[2018-06-25 07:30] LABS: ALBUMIN 3.1 g/dl (3.4-5.0); ALK PHOS 71 U/L (45-117); ANION GAP 8 (8-16); BILIRUBIN,TOTAL 0.4 mg/dL (0.2-1.0); BLOOD UREA NITROGEN 13 mg/dL (7-18); CALCIUM 8.8 mg/dL (8.5-10.1); CHLORIDE 106 mmol/L (98-107); CO2 26 mmol/L (21-32); CREATININE 0.8 mg/dL (0.55-1.02); GLUCOSE,RANDOM 57 mg/dL (74-106); POTASSIUM 4.7 mmol/L (3.5-5.1); SGOT/AST 14 U/L (15-37); SGPT/ALT 16 U/L (12-78); SODIUM 140 mmol/L (136-145)
--- NOTE | 2018-06-25 08:12 | PN ---
Progress Note (short form) - Note Progress Note: Anesthesia post Op Pt seen and examined S:Alert and awake comfortable O: Vital Signs Temperature 98.7 F 06/25/18 06:58 Pulse Rate 77 06/25/18 06:58 Respiratory Rate 22 06/25/18 06:58 Blood Pressure 99/54 06/25/18 06:58 O2 Sat by Pulse Oximetry (%) 98 06/24/18 22:29 CBC, BMP 06/25/18 06:30 06/25/18 06:30 A/P: Current Active Problems Abdominal pain in female (Acute) Acute appendicitis with localized peritonitis (Acute) Appendicitis (Acute) Bipolar disorder (Acute) Diabetes (Acute) History of Helicobacter pylori infection (Acute) s/p lap appy Doing well post op Continue current care Sandoval Rushing MD
--- NOTE | 2018-06-25 08:15 | DS ---
Physical Exam: SUBJECTIVE: Patient seen and examined. c/o abdominal "soreness" tolerated breakfast. passing flatus. no BM. denies, Cp, SOB, fever, chills, N/V/C/D OBJECTIVE: Vital Signs Period Temp Pulse Resp BP Sys/[place] Pulse Ox Last 24 Hr 96 F-98.7 F 66-90 14-22 99-148/54-65 96-100 PHYSICAL EXAM GENERAL: The patient is awake, alert, and fully oriented, in no acute distress. HEAD: Normal with no signs of trauma. EYES: PERRL, extraocular movements intact, sclera anicteric, conjunctiva clear. ENT: Ears normal, nares patent, oropharynx clear without exudates, moist mucous membranes. NECK: Trachea midline, full range of motion, supple. LUNGS: Breath sounds equal, clear to auscultation bilaterally, no wheezes, no crackles, no accessory muscle use. HEART: Regular rate and rhythm, S1, S2 without murmur, rub or gallop. ABDOMEN: Soft, slightly tender over surgical incisions which have good approximation no drainage, no surrounding erythema. nondistended, normoactive bowel sounds, no guarding, no rebound, no hepatosplenomegaly, no masses. EXTREMITIES: 2+ pulses, warm, well-perfused, no edema. NEUROLOGICAL: Cranial nerves II through XII grossly intact. Normal speech, gait not observed. PSYCH: Normal mood, normal affect. SKIN: Warm, dry, normal turgor, no rashes or lesions noted. LABS Laboratory Results - last 24 hr 06/24/18 06/24/18 06/24/18 13:55 13:55 13:55 WBC 16.5 H RBC 4.09 Hgb 12.8 Hct 38.6 MCV 94.4 MCH 31.4 MCHC 33.2 RDW 12.0 Plt Count 349 MPV 8.9 Absolute Neuts (auto) 12.9 Neutrophils % 78.2 Lymphocytes % 12.4 Monocytes % 5.6 Eosinophils % 3.6 Basophils % 0.2 Nucleated RBC % 0 PT with INR INR PTT (Actin FS) Sodium 141 Potassium 5.0 Chloride 104 Carbon Dioxide 29 Anion Gap 8 BUN 17 Creatinine 1.1 H Creat Clearance w eGFR 50.84 POC Glucometer Random Glucose 124 H Calcium 9.5 Total Bilirubin 0.3 AST 18 ALT 20 Alkaline Phosphatase 88 Creatine Kinase 91 Troponin I < 0.02 Total Protein 7.6 Albumin 4.1 Lipase 180 Urine Color Urine Appearance Urine pH Ur Specific [place] Urine Protein Urine Glucose (UA) Urine Ketones Urine Blood Urine Nitrite Urine Bilirubin Urine Urobilinogen Ur Leukocyte Esterase Urine WBC (Auto) Urine RBC (Auto) Ur Epithelial Cells Urine Mucus Blood Type Antibody Screen 06/24/18 06/24/18 06/24/18 14:44 17:32 17:32 WBC RBC Hgb Hct MCV MCH MCHC RDW Plt Count MPV Absolute Neuts (auto) Neutrophils % Lymphocytes % Monocytes % Eosinophils % Basophils % Nucleated RBC % PT with INR 12.40 INR 1.10 PTT (Actin FS) 28.7 Sodium Potassium Chloride Carbon Dioxide Anion Gap BUN Creatinine Creat Clearance w eGFR POC Glucometer Random Glucose Calcium Total Bilirubin AST ALT Alkaline Phosphatase Creatine Kinase Troponin I Total Protein Albumin Lipase Urine Color Ltyellow Urine Appearance Clear Urine pH 7.0 Ur Specific [place] 1.010 Urine Protein Negative Urine Glucose (UA) Negative Urine Ketones Negative Urine Blood Negative Urine Nitrite Negative Urine Bilirubin Negative Urine Urobilinogen Negative Ur Leukocyte Esterase Trace Urine WBC (Auto) None Urine RBC (Auto) None Ur Epithelial Cells Rare Urine Mucus Rare Blood Type O POSITIVE Antibody Screen Negative 06/24/18 06/25/18 06/25/18 21:35 06:22 06:30 WBC 11.7 H RBC 3.64 Hgb 11.6 Hct 34.2 MCV 94.0 MCH 32.0 MCHC 34.0 RDW 12.1 Plt Count 298 MPV 8.7 Absolute Neuts (auto) 7.4 Neutrophils % 63.3 Lymphocytes % 27.9 D Monocytes % 7.3 Eosinophils % 1.0 Basophils % 0.5 Nucleated RBC % 0 PT with INR INR PTT (Actin FS) Sodium Potassium Chloride Carbon Dioxide Anion Gap BUN Creatinine Creat Clearance w eGFR POC Glucometer 60 Random Glucose Calcium Total Bilirubin AST ALT Alkaline Phosphatase Creatine Kinase Troponin I Total Protein Albumin Lipase Urine Color Urine Appearance Urine pH Ur Specific [place] Urine Protein Urine Glucose (UA) Urine Ketones Urine Blood Urine Nitrite Urine Bilirubin Urine Urobilinogen Ur Leukocyte Esterase Urine WBC (Auto) Urine RBC (Auto) Ur Epithelial Cells Urine Mucus Blood Type O POSITIVE Antibody Screen 06/25/18 06:30 WBC RBC Hgb Hct MCV MCH MCHC RDW Plt Count MPV Absolute Neuts (auto) Neutrophils % Lymphocytes % Monocytes % Eosinophils % Basophils % Nucleated RBC % PT with INR INR PTT (Actin FS) Sodium 140 Potassium 4.7 Chloride 106 Carbon Dioxide 26 Anion Gap 8 BUN 13 Creatinine 0.8 Creat Clearance w eGFR > 60 POC Glucometer Random Glucose 57 L Calcium 8.8 Total Bilirubin 0.4 AST 14 L ALT 16 Alkaline Phosphatase 71 D Creatine Kinase Troponin I Total Protein 6.0 L Albumin 3.1 L Lipase Urine Color Urine Appearance Urine pH Ur Specific [place] Urine Protein Urine Glucose (UA) Urine Ketones Urine Blood Urine Nitrite Urine Bilirubin Urine Urobilinogen Ur Leukocyte Esterase Urine WBC (Auto) Urine RBC (Auto) Ur Epithelial Cells Urine Mucus Blood Type Antibody Screen HOSPITAL COURSE: Date of Admission:06/24/18 Date of Discharge: 06/25/18 Admitting Diagnosis: Acute appendicitis Procedures: laprascopic appendectomy 06/24 Pre hospital course 57 y/o F with a PMHx of Asthma, Dementia, HLD, Bipolar, Depression, Gastroparesis, Hep B, NIDDM, H Pylori presents after 3 episodes of NBNB Vomiting accompanied with LLQ pain. Patient normally vomits 1-2x a week. However , today she had some diffuse abdominal pain that worsened and patient looked dehydrated to her daughter. Pain described as constant in the LLQ, 05/08, did not travel. Patient is unsure what triggered the pain and vomiting. Denies any new foods, medication changes or travel. Patient has felt a decreased appetite for some time now. Most of the hx was provided by the son and daughter present. Subsequent hospital course admitted to medicine. CT scan confirmed diagnosis. went for laprascopic appendectomy. no complication. tolerated procedure well. d/c home next day with detailed instructions for follow up Minutes to complete discharge: 40 Discharge Summary Reason For Visit: ABDOMINAL PAIN IN FEMALE Current Active Problems Abdominal pain in female (Acute) Acute appendicitis with localized peritonitis (Acute) Appendicitis (Acute) Bipolar disorder (Acute) Diabetes (Acute) History of Helicobacter pylori infection (Acute) Condition: Improved - Instructions Diet, Activity, Other Instructions: Postoperative instructions: You had a laparoscopic appendectomy on 06/24/[address] Jeffrey Anderson of [facility]. Activity: Resume your usual activities gradually, but no heavy exertion or lifting more than 10-15 pounds for 1 month. Remove dressings 48 hours after surgery; sticky tapes underneath will fall off by themselves. You may shower daily starting then, just pat the incision areas dry. Eat lightly at first, but advance to your usual diet as tolerated. Pain: For pain, you may use and alternate Tylenol (acetaminophen) and/or ibuprofen every 6 hours each as needed; this means that you can take one OR the other at 3-hour intervals. If you are prescribed a Tylenol/narcotic combination for severe pain, use it instead of plain Tylenol as needed and switch back when your pain starts decreasing. Do not take more than 4000mg of acetaminophen in a day. Take medications as prescribed or indicated on the labeling. Follow-up: Call Dr. Anderson' office at [phone] to make your postop appointment (Wednesday ~2 weeks after surgery). Clinic is held in the [facility] on the first floor of [facility]. Call the office if you have: * increasing pain not responsive to pain medication * fever of 101F or higher * vomiting * unusual or increasing bleeding or drainage from wounds * increasing redness or swelling at wound sites * inability to urinate Also, see your primary medical doctor within 1-2 weeks. Referrals: Jeffrey Anderson MD [Staff Physician] - Akila Moran MD [Primary Care Provider] - - Home Medications Comprehensive Discharge Medication List: Ambulatory Orders Famotidine 20 mg PO DAILY 06/24/18 Glimepiride 0 mg PO DAILY 06/24/18 Lamotrigine [Lamictal Xr] 200 mg PO DAILY 06/24/18 Lisinopril 10 mg PO DAILY 06/24/18 Metformin HCl [Glucophage] 500 mg PO BID 06/24/18 Polyethylene Glycol 3350 [Miralax 119 gm Btl -] 0 tab PO DAILY 06/24/18 Quetiapine Fumarate [Seroquel] 600 mg PO DAILY 06/24/18 Rosuvastatin [Crestor -] 10 mg PO DAILY 06/24/18 Sertraline HCl 200 mg PO DAILY 06/24/18 This patient is new to me today: Yes Date on this admission: 06/25/18 Emergency Visit: Yes Care time: The patient presented to the Emergency Department on the above date and was hospitalized for further evaluation of their emergent condition. Critical Care patient: No - Discharge Referral Referred to [facility] No
--- NOTE | 2018-06-25 09:23 | OP ---
DATE OF OPERATION: 06/24/2018 PREOPERATIVE DIAGNOSIS: Early acute appendicitis. POSTOPERATIVE DIAGNOSIS: Early acute appendicitis. PROCEDURE: Laparoscopic appendectomy. ATTENDING SURGEON: Jeffrey Anderson MD ANESTHESIOLOGIST: No one. ANESTHESIOLOGIST: Bharath French MD ANESTHESIA TYPE: General with local, local consisting of 0.5% Marcaine a total of 10 mL given in an area block fashion. ESTIMATED BLOOD LOSS: 10 mL. INTRAVENOUS FLUID ADMINISTERED: Crystalloid, 700 mL. URINE OUTPUT: 200. Vieyra was removed postoperatively. SPECIMEN: Appendix. BRIEF FINDINGS: Mildly inflamed appendix. No gross perforation. All counts correct at the conclusion of the case. . INDICATIONS: Patient is a 57-year-old female presenting with 2 days of worsening abdominal pain focal to the periumbilical region in the left lower quadrant. Leukocytosis to 16,000 with some bandemia. She was noted to have a CT scan that confirmed the presence of an appendix that appeared prominent consistent with early appendicitis. No periappendiceal changes. However, the tip was located towards the left abdomen. On physical examination, she was tender. Decision was made to proceed with appendectomy. She was counseled regarding risks, benefits, and alternatives to surgical procedure. Patient signed informed consent and was taken to the procedure. DESCRIPTION OF PROCEDURE: The patient was brought to the operating room, placed in supine position on the operating table with left arm tucked and the right arm extended at 90 degrees perpendicular to the bodys midline axis. Lower extremities had SCDs placed to compression. Patient then received intravenous ertapenem given her PENICILLIN allergy. Preoperatively, she was induced with general anesthesia, endotracheally intubated without incident. We began, prepped and draped the anterior abdominal wall in standard fashion, lower midline. A formal time-out was completed identifying the operative site and the procedure. With all parties in agreement, we began first with infraumbilical midline incision. It was used to create an opening for a 12-mm Alie 15-blade scalpel used to open the skin. It was deepened and widened through the subcutaneous tissue using Bovie cautery. Upon encountering, the first midline fascia was opened. The second midline fascia, due to a rectus plication, was identified and opened, elevated towards the ceiling when a stay stitch was placed, 0 Vicryl, in a figure-of-8 fashion to allow for ablation of the Alie entry port. A 12-mm Alie port was then installed into the abdomen, and pneumoperitoneum was established at 15 mmHg. We began first with inspecting the entry site which appeared relatively atraumatic. At which point, we proceeded then with additional port site placement, one in the suprapubic region and the other in the left lower quadrant. Then, 5-mm ports were installed under direct visualization. We then began to place the patient in Trendelenburg position to allow for dissection at the cecum. Cecum was identified immediately, and the appendix, which appeared mildly inflamed, was identified and grasped into position. A plane was then developed between the mesoappendix and the appendix itself to allow for staple placement. With the camera resighted to the left lower quadrant, we began to insert the Endo FABIOLA stapler with a purple load 60 mm to transect the base of the appendix at the termination of the taeniae coli upon completion of this transection. The remainder of the mesoappendix was then taken using a Harmonic scalpel, LigaSure device sequentially across the mesoappendix sparing the bowel from dissection. Care was then taken to remove the appendix from the umbilical port using an EndoCatch bag size 10 mm. It was retrieved. Additional inspection of the lower abdomen showed 2 normal ovaries, no additional sites of trauma, no additional pathology was identified. The site was suctioned of a small amount of clots. At which point, the trocars were removed under direct visualization, and the appendix was retrieved with the EndoCatch bag from the umbilical port. The umbilical port was then tied to ablate the abdomen after pneumoperitoneum was relieved. The sites were then irrigated, and the skin was closed using 4-0 Vicryl in running subcuticular fashion at the umbilicus and in interrupted fashion at the 2 additional port sites. Skin was cleaned. Sterile dressings were placed including Dermabond. The patient was awoken from general anesthesia having tolerated the procedure well. Counts were correct at the conclusion of the case. Specimen was sent for pathologic diagnosis. MD MANPREET Huggins/[id number]
[2018-06-25] MEDS ORDERED: RANITIDINE HCL 150 MG TABLET (FP) PO SCH (10:00)
[2018-06-25] MEDS ORDERED: SERTRALINE HCL 50 MG TABLET (FP) PO SCH (10:00)
[2018-06-25] MEDS ORDERED: PATIENT'S OWN MEDICATION (NON-FORMULARY) (Lamotrigine [Lamictal Xr] 200 MG) PO SCH (10:00)
[2018-06-25] MEDS ORDERED: LISINOPRIL 10 MG TABLET (FP) PO SCH (10:00)
[2018-06-25] MEDS ORDERED: lamoTRIgine 100 MG TABLET (FP) PO SCH (10:00)
[2018-06-25] MEDS ORDERED: POLYETHYLENE GLYCOL 3350 119 GM BTL PO SCH ×3 (10:00)
[2018-06-25] MEDS ORDERED: PT OWN MED DRAWER 7, Y5N ONE ×2 (10:09→10:42)
[2018-06-25 13:16] VITALS: BP 110/60; PULSE 73; TEMP 98.8
[2018-06-25] MEDS ORDERED: ROSUVASTATIN CA 10 MG TABLET (FP) PO SCH (22:00)
--- NOTE | 2018-06-28 16:45 | PATH ---
Surgical Pathology Report Patient Name: CLINTON KIM [facility]. Rec. #: [id number] /Age/Gender: 1960 (Age: 57) / F Account: [id number] Location: AMBULATORY SURG Taken: 06/24/2018 Received: 06/27/2018 Reported: 06/28/2018 Physicians: Jeffrey Anderson M.D. PHYSICIAN EMERGENCY DEPT Specimen(s) Received APPENDIX Clinical History Acute appendicitis Final Diagnosis APPENDIX, APPENDECTOMY: APPENDIX SHOWING NEUTROPHILIC INFILTRATE IN THE EPITHELIAL MUCOSA, INTRALUMINAL ACUTE INFLAMMATORY EXUDATE, CONSISTENT WITH EARLY ACUTE APPENDICITIS. Electronically Signed Saida Mena M.D. Gross Description Received in formalin labeled with the "appendix", is a portion of appendix measuring 7 cm in length and 0.7 cm in averaged diameter, with attached mesoappendix. The serosal surface is congested. Serial sections reveal patent appendiceal lumen with fecal material. Pipe Smoker Machine Operator sections are submitted in one cassette. HUE/06/27/2018 doris/06/27/2018
== END 2018-06-25 16:25 | disposition home or self-care (01) ==
LOC: JER 12:54 → JASUSAT 19:29 → J8W 22:45 → JASUSAT 06-25 16:25
PROVIDERS: ATTEND Internal Medicine
PROC: 0DTJ4ZZ Resection of Appendix, Percutaneous Endoscopic Approach (ICD-10-PCS; principal; 2018-06-24 20:00)
DX: K35.89 Other acute appendicitis (principal); E11.9 Type 2 diabetes mellitus without complications; J45.909 Unspecified asthma, uncomplicated
CPT/HCPCS: 36415; 74177-TC; 80053; 81003; 81015; 82550; 82962; 83690; 84484; 85025; 85610; 85730; 86850; 86900; 86901; 87040; 88304-TC; 93005; 93010; 94010; 94760; 99282-25; J0131; J7030

== ENCOUNTER 2021-12-07 10:48 | Emergency (ER) | payer OTHER, BC ==
[2021-12-07 10:59] VITALS: TEMP 98; BMI 20.7
[2021-12-07] MEDS ORDERED: ALBUTEROL SO4 HFA INHALER IH ONE ×2 (12:07→12:14)
[2021-12-07 14:41] LABS: BASO % 0.7 % (0-2.0); EOS % 3.6 % (0-4.5); HEMATOCRIT 36.9 % (32.4-45.2); HEMOGLOBIN 12.5 GM/dL (10.7-15.3); LYMPH % 42.8 % (8-40); MCH 31.8 pg (25.7-33.7); MCHC 33.8 g/dl (32.0-36.0); MEAN CELL VOLUME 94.1 fl (80-96); MEAN PLT VOLUME 8.7 fl (7.5-11.1); MONO % 9.6 % (3.8-10.2); NEUT % 43.3 % (42.8-82.8); PLATELET COUNT 338 10^3/uL (134-434); RBC 3.92 M/mm3 (3.60-5.2); RDW 11.9 % (11.6-15.6); WHITE BLOOD COUNT 7.3 K/mm3 (4.0-10.0)
[2021-12-07 14:42] LABS: CHLORIDE 103 mmol/L (98-107); SODIUM 140 mmol/L (136-145)
[2021-12-07 14:44] LABS: CALCIUM 10.3 mg/dL (8.5-10.1)
[2021-12-07 14:45] LABS: ALBUMIN 4.4 g/dl (3.4-5.0); ANION GAP 7 MMOL/L (8-16); BLOOD UREA NITROGEN 19.4 mg/dL (7-18); CO2 30 mmol/L (21-32); GLUCOSE,RANDOM 133 mg/dL (74-106)
[2021-12-07 14:48] LABS: CREATININE 1.4 mg/dL (0.55-1.3); SGOT/AST 16 U/L (15-37); SGPT/ALT 20 U/L (13-61)
[2021-12-07 14:50] LABS: BILIRUBIN,TOTAL 0.3 mg/dL (0.2-1); TOT PROT 8.1 g/dl (6.4-8.2)
[2021-12-07 14:51] LABS: ALK PHOS 86 U/L (45-117)
[2021-12-07 15:43] VITALS: BP 116/70; PULSE 80
== END 2021-12-07 15:43 | disposition home or self-care (01) ==
LOC: JER 10:48
PROC: 3E0F7GC Introduction of Other Therapeutic Substance into Respiratory Tract, Via Natural or Artificial Opening (ICD-10-PCS; principal; 2021-12-07)
DX: R07.9 Chest pain, unspecified (principal); B34.9 Viral infection, unspecified
CPT/HCPCS: 36415; 71046-TC-FY; 80053; 84484; 85025; 87804; 93005; 93010; 94640; 99285-25; C9803-CS; U0003; U0005